=== PATIENT | male | born 1980 | race Two or more races ===

== ENCOUNTER 2024-12-29 10:17 | Inpatient (IN) | payer OTHER ==
[~2024-12-29] VITALS: Ht 167.6 cm; Wt 81.6 kg
[2024-12-29 11:28] LABS: PLATELET COUNT (AUTO) 218 K/uL (152-348); RED BLOOD CELL COUNT(AUTO) 5.55 MIL/uL (4.06-5.63); RED CELL DISTRIBUTION WIDTH 13.4 % (12.1-16.2); WHITE BLOOD COUNT (AUTO) 5.3 K/uL (3.6-10.2)
[2024-12-29 11:37] LABS: CREATININE 0.9 mg/dL (0.6-1.3); SODIUM SERUM 141 mmol/L (136-145); UREA NITROGEN, BLOOD 19 mg/dL (7-18)
[2024-12-29] MEDS ORDERED: MAGNESIUM SULFATE 1 GM/2 ML VIAL ONE (12:03)
[2024-12-29] MEDS: MAGNESIUM SULFATE 2 GM in IV DEXTROSE 5% 100 ML IV ONE (12:03)
[2024-12-29] MEDS ORDERED: ASPIRIN 81 MG TAB.CHEW ONE (12:32)
[2024-12-29] MEDS: ASPIRIN 81 MG TAB.CHEW PO ONE (12:37)
[2024-12-29 13:19] LABS: ETHANOL < 3 MG/DL (0-10)
[2024-12-29 14:00] VITALS: BP 131/98
[2024-12-29] MEDS ORDERED: ONDANSETRON 4 MG/2 ML VIAL IV PRN (14:30)
[2024-12-29] MEDS ORDERED: MAGNESIUM HYDROXIDE 30 ML LIQUID UDC PO PRN (14:30)
[2024-12-29 14:50] LABS: *BILIRUBIN,URIN NEGATIVE (NEGATIVE); *BLOOD, URINE NEGATIVE (NEGATIVE); *CLARITY,URINE CLEAR (CLEAR); *COLOR,URINE YELLOW (YELLOW); *KETONES,URINE NEGATIVE (NEGATIVE); *PROTEIN,URINE NEGATIVE (NEGATIVE); *UROBILINOGEN,URINE 0.2 E.U./dl (NORMAL); LEUKOCYTE ESTERASE ,URINE NEGATIVE (NEGATIVE); NITRITE, URINE NEGATIVE (NEGATIVE); UGLUCOSE NEGATIVE (NEGATIVE)
[2024-12-29 15:21] VITALS: BP 126/88; TEMP 97.7; O2SAT 98
[2024-12-29 19:15] VITALS: BP 133/79; TEMP 98.7; O2SAT 95
[2024-12-29] MEDS: IV 1/2NS 1000 ML 1,000 ML IV PRN (19:46)
[2024-12-29] MEDS: ATORVASTATIN 40 MG TABLET PO SCH (20:03)
[2024-12-29] MEDS: ACETAMINOPHEN 325 MG TABLET PO PRN (20:04)
[2024-12-30 00:25] VITALS: BP 124/71; TEMP 98.7; O2SAT 98
[2024-12-30 04:37] VITALS: BP 119/59; TEMP 98.6; O2SAT 98
[2024-12-30] MEDS: PANTOPRAZOLE SODIUM 40 MG TABLET.DR PO SCH (06:18)
[2024-12-30 07:29] LABS: PLATELET COUNT (AUTO) 215 K/uL (152-348); RED BLOOD CELL COUNT(AUTO) 5.40 MIL/uL (4.06-5.63); RED CELL DISTRIBUTION WIDTH 13.3 % (12.1-16.2); WHITE BLOOD COUNT (AUTO) 6.7 K/uL (3.6-10.2)
[2024-12-30 07:45] VITALS: BP 119/66; TEMP 97.4; O2SAT 96
[2024-12-30 07:52] LABS: CREATININE 0.9 mg/dL (0.6-1.3); SODIUM SERUM 140.0 mmol/L (136-145); UREA NITROGEN, BLOOD 17.0 mg/dL (7-18)
[2024-12-30] MEDS: ASPIRIN EC 81 MG TABLET.DR PO SCH (08:40)
[2024-12-30] MEDS ORDERED: GADOTERATE MEGLUMINE 10 MMOL/20 ML VIAL IV ONE (10:53)
[2024-12-30 11:01] LABS: *BILIRUBIN,URIN NEGATIVE (NEGATIVE); *BLOOD, URINE NEGATIVE (NEGATIVE); *CLARITY,URINE CLEAR (CLEAR); *COLOR,URINE YELLOW (YELLOW); *KETONES,URINE NEGATIVE (NEGATIVE); *PROTEIN,URINE NEGATIVE (NEGATIVE); *UROBILINOGEN,URINE 0.2 E.U./dl (NORMAL); LEUKOCYTE ESTERASE ,URINE NEGATIVE (NEGATIVE); NITRITE, URINE NEGATIVE (NEGATIVE); UGLUCOSE NEGATIVE (NEGATIVE)
[2024-12-30 11:12] LABS: *AMPHETAMINE, URINE NEGATIVE (NEGATIVE); *BARBITURATE, URINE NEGATIVE (NEGATIVE); *BENZODIAZEPINE, URINE NEGATIVE (NEGATIVE); *CANNABINOID, URINE NEGATIVE (NEGATIVE); *COCCAINE, URINE NEGATIVE (NEGATIVE); *OPIATE, URINE NEGATIVE (NEGATIVE); *PHENCYCLIDINE SCREEN,URINE NEGATIVE (NEGATIVE); FENTANYL, URINE NEGATIVE (NEGATIVE)
[2024-12-30 11:15] VITALS: BP 111/61; TEMP 98.6; O2SAT 96
[2024-12-30] MEDS: METHOCARBAMOL 750 MG TABLET PO ONE (13:08)
[2024-12-30] MEDS ORDERED: METH-807 PO (13:29)
== END 2024-12-30 14:50 | disposition home or self-care (01) | DRG 57 ==
LOC: ER 10:17 → TELE3 14:29
PROVIDERS: ADMIT Nurse Practitioner Family; ATTEND Nurse Practitioner Family
DX: S06.0XAA Concussion with loss of consciousness status unknown, initial encounter (principal); G93.41 Metabolic encephalopathy; R40.2142 Coma scale, eyes open, spontaneous, at arrival to emergency department; R40.2362 Coma scale, best motor response, obeys commands, at arrival to emergency department; R40.2252 Coma scale, best verbal response, oriented, at arrival to emergency department; Y93.9 Activity, unspecified; E86.0 Dehydration; I21.A1 Myocardial infarction type 2; R79.89 Other specified abnormal findings of blood chemistry; W13.2XXA Fall from, out of or through roof, initial encounter; Y93.89 Activity, other specified; Y92.89 Other specified places as the place of occurrence of the external cause
CPT/HCPCS: 36415; 70450; 70553; 71045; 72125; 83735; 84100; 84484; 85025; 93307; A9575; G0378; G0480; J3475